=== PATIENT | female | born 1995 | race Two or more races ===

== ENCOUNTER 2017-01-25 11:05 | Emergency (ER) | payer MEDICAID, OTHER ==
[~2017-01-25] VITALS: Ht 152.4 cm; Wt 58.5 kg
[2017-01-25] MEDS ORDERED: ACETAMINOPHEN 325 MG TABLET PO ONE (12:15)
[2017-01-25] MEDS ORDERED: FAMOTIDINE 20 MG TABLET PO ONE (12:15)
[2017-01-25] MEDS ORDERED: MAG HYDROX/AL HYDROX/SIMETH 30 ML LIQUID UDC PO ONE (12:15)
--- NOTE | 2017-01-25 12:24 | NUR ---
PT IS IN ROOM #2A. DR AMES EVALUATED THE PT.
[2017-01-25] MEDS ORDERED: ACETAMINOPHEN 325 MG TABLET ONE (12:26)
[2017-01-25] MEDS ORDERED: FAMOTIDINE 20 MG TABLET ONE (12:26)
[2017-01-25] MEDS ORDERED: MAG HYDROX/AL HYDROX/SIMETH 30 ML LIQUID UDC ONE (12:27)
[2017-01-25 12:30] LABS: *BILIRUBIN,URIN NEGATIVE (NEGATIVE); *BLOOD, URINE NEGATIVE (NEGATIVE); *CLARITY,URINE CLEAR (CLEAR); *COLOR,URINE YELLOW (YELLOW); *KETONES,URINE NEGATIVE (NEGATIVE); *PROTEIN,URINE NEGATIVE (NEGATIVE); *UROBILINOGEN,URINE 0.2 E.U./dl (NORMAL); LEUKOCYTE ESTERASE ,URINE NEGATIVE (NEGATIVE); NITRITE, URINE NEGATIVE (NEGATIVE); PH,URINE 6.5 (5.0-8.0); UGLUCOSE NEGATIVE (NEGATIVE)
[2017-01-25 12:34] LABS: *URINE HCG, QUAL NEGATIVE (NEGATIVE); BACTERIA,URINE NONE SEEN /HPF (NONE SEEN); RBC,URINE 0-3 /HPF (0-3); SQUAMOUS EPITHELIAL CELL,UR NONE SEEN /HPF (NONE SEEN); WBC,URINE 0-3 /HPF (0-3)
--- NOTE | 2017-01-25 13:18 | NUR ---
PT STATED MD GAVE HER VERBAL ACI AND LEFT. PT TOLK ALL BELONGINGS AND AMBULATED W/O DIFF.
[2017-01-25 13:20] VITALS: BP 122/69
== END 2017-01-25 13:21 | disposition home or self-care (01) ==
LOC: ER 11:05
DX: R10.13 Epigastric pain (principal); R11.0 Nausea; F10.20 Alcohol dependence, uncomplicated
CPT/HCPCS: 81001; 84703; 99284; A4663

== ENCOUNTER 2018-11-21 01:29 | Emergency (ER) | payer OTHER ==
--- NOTE | 2018-11-21 01:38 | NUR ---
Patient left without being traiged or seen by ERMD
== END 2018-11-21 01:40 | disposition left against medical advice (07) ==
LOC: ER 01:33
DX: Z53.21 Procedure and treatment not carried out due to patient leaving prior to being seen by health care provider (principal)

== ENCOUNTER 2021-10-31 15:35 | Emergency (ER) | payer OTHER ==
[~2021-10-31] VITALS: Ht 152.4 cm; Wt 56.7 kg
[2021-10-31 15:59] LABS: *BILIRUBIN,URIN 2+ (NEGATIVE); *BLOOD, URINE 3+ (NEGATIVE); *CLARITY,URINE TURBID (CLEAR); *COLOR,URINE RED (YELLOW); *KETONES,URINE 1+ (NEGATIVE); LEUKOCYTE ESTERASE ,URINE 3+ (NEGATIVE); NITRITE, URINE POSITIVE (NEGATIVE); PH,URINE 6.5 (5.0-8.0); UGLUCOSE NEGATIVE (NEGATIVE)
[2021-10-31] MEDS ORDERED: PHENAZOPYRIDINE HCL 100 MG TABLET PO ONE (16:00)
[2021-10-31] MEDS ORDERED: ONDANSETRON ODT 4 MG TAB.RAPDIS SL ONE (16:00)
[2021-10-31 16:04] LABS: *URINE HCG, QUAL NEG (NEGATIVE)
[2021-10-31] MEDS ORDERED: PHENAZOPYRIDINE HCL 100 MG TABLET ONE (16:09)
[2021-10-31] MEDS ORDERED: ONDANSETRON HCL 4 MG TABLET ONE (16:10)
[2021-10-31] MEDS ORDERED: PHEN-705 PO (16:45)
[2021-10-31] MEDS ORDERED: CEPH500C2 PO (16:45)
[2021-10-31] MEDS ORDERED: ONDA4TAB5 PO (16:45)
--- NOTE | 2021-10-31 16:54 | NUR ---
Patient discharged to home in stable condition. Written and verbal after care instructions given. Patient verbalizes understanding of instructions. Stressed follow up or return to ER for worsening s/s.
[2021-10-31 16:55] VITALS: BP 100/56
[2021-10-31 19:25] LABS: BACTERIA,URINE FEW /HPF (NONE SEEN); RBC,URINE TNTC /HPF (0-3)
[2021-10-31 19:26] LABS: SQUAMOUS EPITHELIAL CELL,UR NONE SEEN /HPF (NONE SEEN)
== END 2021-10-31 16:56 | disposition home or self-care (01) ==
LOC: ER 15:39
DX: N39.0 Urinary tract infection, site not specified (principal); R31.0 Gross hematuria; B96.20 Unspecified Escherichia coli [E. coli] as the cause of diseases classified elsewhere
CPT/HCPCS: 84703; 87077; 87086; A4663; Q0162

== ENCOUNTER 2021-12-05 17:16 | Emergency (ER) | payer OTHER ==
[~2021-12-05 17:16] MED LIST: CEPH500C2 PO; ONDA4TAB5 PO; PHEN-705 PO
--- NOTE | 2021-12-05 19:08 | NUR ---
PATIENT WAS CALLED TO BE TRIAGED BUT WAS NOT PRESENT IN THE WAITING ROOM OR OUTSIDE OF ER.
--- NOTE | 2021-12-05 19:15 | NUR ---
patient was called to be triaged but was not present in the waiting room or outside of ER.
--- NOTE | 2021-12-05 19:30 | NUR ---
Patient was called to be triaged but was not present in the waiting room or outside of ER. PATIENT WAS NOT TRIAGED OR SEEN BY ERMD.
== END 2021-12-05 19:30 | disposition left against medical advice (07) ==
LOC: ER 17:33
DX: Z53.21 Procedure and treatment not carried out due to patient leaving prior to being seen by health care provider (principal)

== ENCOUNTER 2022-07-14 15:16 | Emergency (ER) | payer OTHER ==
[~2022-07-14] VITALS: Ht 152.4 cm; Wt 59.0 kg
[2022-07-14] MEDS ORDERED: IV NORMAL SALINE 1000 ML BAG IV ONE (17:45)
[2022-07-14 18:01] LABS: *BILIRUBIN,URIN NEGATIVE (NEGATIVE); *BLOOD, URINE 3+ (NEGATIVE); *CLARITY,URINE CLEAR (CLEAR); *COLOR,URINE YELLOW (YELLOW); *KETONES,URINE NEGATIVE (NEGATIVE); *UROBILINOGEN,URINE 0.2 E.U./dl (NORMAL); LEUKOCYTE ESTERASE ,URINE TRACE (NEGATIVE); NITRITE, URINE NEGATIVE (NEGATIVE); PH,URINE 6.5 (5.0-8.0); UGLUCOSE NEGATIVE (NEGATIVE)
[2022-07-14 18:09] LABS: *URINE HCG, QUAL NEG (NEGATIVE)
[2022-07-14 18:17] LABS: BILIRUBIN,DIRECT 0.2 mg/dL (0.0-0.2); BILIRUBIN,TOTAL 0.5 mg/dL (0.2-1.0); CREATININE 0.7 mg/dL (0.6-1.3); POTASSIUM 4.1 mmol/L (3.5-5.1); TOTAL PROTEIN, SERUM 7.9 g/dL (6.4-8.2)
--- NOTE | 2022-07-14 18:51 | NUR ---
PT IS IN ROOM #2B. DR LISA EVALUATED THE PT.
[2022-07-14] MEDS ORDERED: METR500T PO (19:31)
[2022-07-15 06:52] VITALS: BP 118/64
[2022-07-15 11:26] LABS: BACTERIA,URINE NONE SEEN /HPF (NONE SEEN); SQUAMOUS EPITHELIAL CELL,UR FEW /HPF (NONE SEEN); WBC,URINE 0-3 /HPF (0-3)
== END 2022-07-14 19:30 | disposition home or self-care (01) ==
LOC: ER 15:16
DX: N83.209 Unspecified ovarian cyst, unspecified side (principal); N76.0 Acute vaginitis; Z87.440 Personal history of urinary (tract) infections
CPT/HCPCS: 36415; 83690; 84703; A4663

== ENCOUNTER 2024-07-12 14:00 | Emergency (ER) | payer OTHER ==
[~2024-07-12 14:00] MED LIST changes: +METR500T PO
[2024-07-13] MEDS ORDERED: ACET1TAB23 PO (16:22)
[2024-07-13] MEDS ORDERED: LIDO30AD10 TP (16:22)
== END 2024-07-12 15:21 | disposition left against medical advice (07) ==
LOC: ER 14:00
DX: N64.4 Mastodynia (principal); Z53.21 Procedure and treatment not carried out due to patient leaving prior to being seen by health care provider

== ENCOUNTER 2024-07-13 14:31 | Emergency (ER) | payer OTHER ==
[~2024-07-13] VITALS: Ht 152.4 cm; Wt 58.1 kg
[2024-07-13 15:16] VITALS: O2SAT 99
[2024-07-13] MEDS ORDERED: LIDO30AD10 TP (16:22)
[2024-07-13] MEDS ORDERED: ACET1TAB23 PO (16:22)
== END 2024-07-13 16:38 | disposition home or self-care (01) ==
LOC: ER 14:31
DX: M94.0 Chondrocostal junction syndrome [Tietze] (principal); Z79.899 Other long term (current) drug therapy; Z88.7 Allergy status to serum and vaccine
CPT/HCPCS: 71045; A4606; A4663